=== PATIENT | female | born 1940 | race Caucasian/White ===

== ENCOUNTER 2016-04-23 10:12 | Emergency (ER) | payer BC, MEDICARE, OTHER ==
[~2016-04-23] VITALS: Ht 162.6 cm; Wt 85.0 kg
[~2016-04-23 10:12] MED LIST: ALPR.25 PO; AMLO5 PO; ASPI81CH CHEW; BENI40TA3 PO; CARA1TAB6 PO; CARV6.25 PO; FURO1TAB62 PO; JANU50TA8 PO; OMEP40CA2 PO; POTA10TA2 PO; [UNRECOGNIZED DRUG - REMARK] PO/GT
[2016-04-23 10:21] VITALS: BP 150/72; PULSE 72; RESP 16; TEMP 98; O2SAT 98
[2016-04-23 11:05] VITALS: BP 150/72; PULSE 72; RESP 16; TEMP 98; O2SAT 97
--- NOTE | 2016-04-23 12:11 | PD ---
HPI Chief Complaint: ENT Complaint Time Seen by Provider: 12:08 Travel History International Travel<30 days: No Contact w/Intl Traveler<30days: No Traveled to known affect area: No History of Present Illness HPI 75-year-old female presents to the emergency Department with complaint of the tip of a Q-tip stuck in her right ear. She uses ear drops for itchy ears and she was itching her ear with a Q-tip last night in the tip of that came off. She denies fever, chills, nausea, vomiting. Denies dizziness, headache, lightheadedness. Denies ear pain. Has tried to get it out with a bulb suction without success. No known allergies. Has an appointment on Sunday with ENT. No other modifying factors or associated signs and symptoms. PFSH Past Medical History Anxiety: Yes Cancer: No Cardiovascular Problems: Yes High Cholesterol: Yes Congestive Heart Failure: Yes (DYSTOLIC) Diabetes: Yes (type 2) Patient Takes Glucophage: Yes Endocrine: Yes GERD: Yes Genitourinary: Yes Hypertension: Yes Immune Disorder: No Musculoskeletal: No Neurologic: No Psychiatric: Yes Reproductive: No Respiratory: No Thyroid Disease: No Influenza Vaccination: Yes ?: Not Menopausal: Yes Past Surgical History Abdominal Surgery: Yes (APPY) Appendectomy: Yes Gynecologic Surgery: Yes (COMPLETE HYSTERECTOMY) Hysterectomy: Yes Other Surgery: Yes (SINUS SX) Social History Alcohol Use: No Tobacco Use: No Substance Use: No Allergies-Medications (Allergen,Severity, Reaction): Coded Allergies: No Known Allergies (Unverified , 04/23/16) Reported Meds & Prescriptions Reported Meds & Active Scripts Active Carafate (Sucralfate) 1 Gm Tab 1 Gm PO QID On empty stomach Reported Potassium Chloride ER (Potassium Chloride) 10 Meq Tab 10 Meq PO DAILY Omeprazole 40 Mg Cap 40 Mg PO DAILY Benicar (Olmesartan) 40 Mg Tab 40 Mg PO HS Janumet (Sitagliptin-Metformin) 50-1,000 Mg Tab 1 Tab PO BID Lasix (Furosemide) 20 Mg Tab 20 Mg PO DAILY Coreg (Carvedilol) 6.25 Mg Tab 6.25 Mg PO BID Aspirin 81 Mg Chew 81 Mg CHEW DAILY Norvasc (Amlodipine Besylate) 5 Mg Tab 5 Mg PO BID Xanax (Alprazolam) 0.25 Mg Tab 0.25 Mg PO BID PRN Review of Systems Except as stated in HPI: all other systems reviewed are Neg Physical Exam Narrative GENERAL: Well-nourished, well-developed female patient, in no acute distress SKIN: Warm and dry. HEAD: Atraumatic. Normocephalic. EYES: Pupils equal and round. No scleral icterus. No injection or drainage. EARS: Unable to visualize right tympanic membrane secondary to foreign body in the ear canal. After removal of foreign body the tympanic membrane is without erythema, dullness, loss of landmarks, perforation. ENT: Mucosa pink and moist. Airway patent. NECK: Trachea midline. CARDIOVASCULAR: Regular rate. RESPIRATORY: No accessory muscle use. GASTROINTESTINAL: Rounded. MUSCULOSKELETAL: No obvious deformities. No clubbing. No cyanosis. No edema. NEUROLOGICAL: Awake and alert. Oriented 3. No obvious cranial nerve deficits. Motor grossly within normal limits. Normal speech. PSYCHIATRIC: Appropriate mood and affect; insight and judgment normal. Data Data Last Documented VS Vital Signs Date Time Temp Pulse Resp B/P Pulse Ox O2 Delivery O2 Flow Rate FiO2 04/23/16 11:05 98.0 72 16 150/72 97 04/23/16 10:21 Room Air MDM Medical Decision Making Medical Screen Exam Complete: Yes Emergency Medical Condition: Yes Medical Record Reviewed: Yes Differential Diagnosis Foreign body of the right ear, otitis media, otitis externa Narrative Course 75-year-old female with foreign body in her right ear canal. Foreign body successfully removed using alligator forceps. Patient tolerated well. Patient is medically cleared and stable for discharge. Discussed reasons to return to the emergency department. Instructed patient to follow up with primary care provider. Patient agrees with treatment plan. The patients vital signs are stable and the patient is stable for outpatient follow-up and treatment. Patient discharged home, stable and in no acute distress. Diagnosis Primary Impression: Foreign body of ear, right Qualified Code: T16.1XXA - Foreign body of ear, right, initial encounter Referrals: Primary Care Physician Patient Instructions: Ear Foreign Body (ED), General Instructions Additional Instructions: Ibuprofen or Tylenol as directed and as needed for pain Follow up with ENT as needed Follow-up with primary care provider Return to the emergency department immediately with worsening of symptoms Med/Other Pt SpecificInfo: No Meds Exist/No RX given Disposition: DISCHARGE HOME Condition: Stable Sheila Cha Apr 23, 2016 12:10
== END 2016-04-23 12:21 | disposition home or self-care (01) ==
LOC: PHEFT 10:12
DX: T16.1XXA Foreign body in right ear, initial encounter (principal); I50.9 Heart failure, unspecified; E11.9 Type 2 diabetes mellitus without complications; I10 Essential (primary) hypertension; W45.8XXA Other foreign body or object entering through skin, initial encounter; Y93.9 Activity, unspecified; Y92.9 Unspecified place or not applicable
CPT/HCPCS: 69200

== ENCOUNTER 2016-06-27 15:17 | Emergency (ER) | payer MEDICARE ==
[~2016-06-27] VITALS: Ht 162.6 cm; Wt 87.7 kg
[~2016-06-27 15:17] MED LIST changes: -[UNRECOGNIZED DRUG - REMARK] PO/GT
[2016-06-27 15:29] VITALS: BP 170/66; PULSE 70; RESP 20; TEMP 97.8; O2SAT 99
--- NOTE | 2016-06-27 15:43 | PD ---
HPI Chief Complaint: Foreign Body Time Seen by Provider: 15:41 Travel History International Travel<30 days: No Contact w/Intl Traveler<30days: No Traveled to known affect area: No History of Present Illness HPI 75-year-old female presents the emergency department with suspected foreign body in the right ear. Patient states she was using Q-tips on Sunday and lost for Q-tip in her right ear. Patient called her ENT is unable to see her until 19 of July. Patient is having increased irritation today. She denies any other significant symptoms. She has no known drug allergies. PFSH Past Medical History Anxiety: Yes Cancer: No Cardiovascular Problems: Yes (HTN) High Cholesterol: Yes Congestive Heart Failure: Yes (DYSTOLIC) Diabetes: Yes (NO MEDS) Endocrine: Yes GERD: Yes Genitourinary: Yes Hypertension: Yes Immune Disorder: No Musculoskeletal: No Neurologic: No Psychiatric: Yes Reproductive: No Respiratory: No Thyroid Disease: No ?: Not Menopausal: Yes Past Surgical History Abdominal Surgery: Yes (APPY) Appendectomy: Yes Gynecologic Surgery: Yes (COMPLETE HYSTERECTOMY) Hysterectomy: Yes Other Surgery: Yes (SINUS SX) Social History Alcohol Use: No Tobacco Use: No Substance Use: No Allergies-Medications (Allergen,Severity, Reaction): Coded Allergies: No Known Allergies (Unverified , 06/27/16) Reported Meds & Prescriptions Reported Meds & Active Scripts Active Reported Omeprazole 20 Mg Tab 20 Mg PO DAILY Benicar (Olmesartan) 40 Mg Tab 40 Mg PO HS Coreg (Carvedilol) 6.25 Mg Tab 6.25 Mg PO BID Aspirin 81 Mg Chew 81 Mg CHEW DAILY Norvasc (Amlodipine Besylate) 5 Mg Tab 5 Mg PO BID Xanax (Alprazolam) 0.25 Mg Tab 0.25 Mg PO BID PRN Review of Systems Except as stated in HPI: all other systems reviewed are Neg General / Constitutional: No: Fever Eyes: No: Visual changes HENT: Positive: Earache (see history present illness), No: Headaches Cardiovascular: No: Chest Pain or Discomfort Respiratory: No: Shortness of Breath Gastrointestinal: No: Abdominal Pain Genitourinary: No: Dysuria Musculoskeletal: No: Pain Skin: No Rash Neurologic: No: Weakness Psychiatric: No: Depression Endocrine: No: Polydipsia Hematologic/Lymphatic: No: Easy Bruising Physical Exam Narrative GENERAL: Patient appears in no acute distress. SKIN: Warm and dry. Normal color. Normal turgor. HEAD: Atraumatic. Normocephalic. EYES: Pupils equal and round. No scleral icterus. No injection or drainage. ENT: No nasal bleeding or discharge. Mucous membranes pink and moist. Left TM and ear canal are normal. Right ear canal shows mild swelling and obvious Q- tip deep in the ear canal. After foreign body removed Right ear canal slightly irritated and swollen with mild erythema TM as well. Pharynx is normal. Airway is patent. NECK: Trachea midline. Supple and nontender. CARDIOVASCULAR: Regular rate and rhythm. RESPIRATORY: No accessory muscle use. Clear to auscultation. Breath sounds equal bilaterally. MUSCULOSKELETAL: Extremities without clubbing, cyanosis, or edema. No obvious deformities. NEUROLOGICAL: Awake and alert. No obvious cranial nerve deficits. Motor grossly within normal limits. Five out of 5 muscle strength in the arms and legs. Normal speech. PSYCHIATRIC: Appropriate mood and affect; insight and judgment normal. Data Data Last Documented VS Vital Signs Date Time Temp Pulse Resp B/P Pulse Ox O2 Delivery O2 Flow Rate FiO2 06/27/16 15:29 97.8 70 20 170/66 99 MDM Medical Decision Making Medical Screen Exam Complete: Yes Emergency Medical Condition: Yes Differential Diagnosis Foreign body right ear canal. External otitis. Otitis media. Tympanic membranes perforation. Narrative Course Patient is medically stable at time of exam. Foreign body is removed without difficulty using an alligator forceps. Patient will be placed on Cortisporin drops for the next 5 days. Patient follow-up if symptoms worsen as discussed. Diagnosis Primary Impression: Foreign body of ear, right Qualified Code: T16.1XXA - Foreign body of ear, right, initial encounter Additional Impression: Otitis externa Qualified Code: H60.311 - Acute diffuse otitis externa of right ear Referrals: Ear / Nose / Throat Specialist as needed Patient Instructions: General Instructions Additional Instructions: Foreign body is removed without difficulty using an alligator forceps. Patient will be placed on Cortisporin drops for the next 5 days. Patient follow-up if symptoms worsen as discussed. Med/Other Pt SpecificInfo: Prescription(s) given Disposition: DISCHARGE HOME Condition: Stable Raheem Munguia Jun 27, 2016 15:43
[2016-06-27] MEDS ORDERED: OMEP20TA PO (15:45)
[2016-06-27] MEDS ORDERED: CORT1SOL RIGHT EAR (16:02)
== END 2016-06-27 16:16 | disposition home or self-care (01) ==
LOC: PHEFT 15:17
DX: T16.1XXA Foreign body in right ear, initial encounter (principal); H60.311 Diffuse otitis externa, right ear; I10 Essential (primary) hypertension
CPT/HCPCS: 69200

== ENCOUNTER 2016-11-01 16:43 | Emergency (ER) | payer MEDICARE ==
[~2016-11-01] VITALS: Ht 162.6 cm; Wt 90.2 kg
[~2016-11-01 16:43] MED LIST changes: -CARA1TAB6 PO; +CORT1SOL RIGHT EAR; -FURO1TAB62 PO; -JANU50TA8 PO; +OMEP20TA PO; -OMEP40CA2 PO; -POTA10TA2 PO
[2016-11-01 16:53] VITALS: BP 186/78; PULSE 78; RESP 16; TEMP 98; O2SAT 100
[2016-11-01 19:00] VITALS: BP 193/69; PULSE 68; RESP 18; O2SAT 97
--- NOTE | 2016-11-01 19:14 | PD ---
HPI Chief Complaint: Respiratory Symptoms Time Seen by Provider: 18:48 Travel History International Travel<30 days: No Contact w/Intl Traveler<30days: No Traveled to known affect area: No History of Present Illness HPI This 75-year-old female complaining of shortness of breath. She has not been feeling well for some time. She was admitted to the hospital in December of 2015 with trouble breathing. At that time she was told that she had congestive heart failure though she was later told that it was due to hypertension and that her heart was okay. She has a history of hypertension and is on blood pressure medications twice a day. She has been feeling very fatigued and weak for several months. She Dr. Bennett has been sending her to multiple physicians for evaluation. She has had some declining kidney function. She has been sent to an pizza baker. She is going to see Dr. Vences. She has never smoked. She is supposed to have a bone marrow biopsy on Sunday to assess for multiple myeloma. 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 He had a CT scan of her abdomen which showed some tiny nodules in the lung. He has a history of diabetes. PFSH Past Medical History Hx Anticoagulant Therapy: No Anxiety: Yes Cancer: No Cardiovascular Problems: Yes (HTN, CHOL) High Cholesterol: Yes Congestive Heart Failure: Yes (DYSTOLIC) Diabetes: Yes Patient Takes Glucophage: No Endocrine: Yes GERD: Yes Genitourinary: Yes Hypertension: Yes Immune Disorder: No Musculoskeletal: No Neurologic: No Psychiatric: Yes Reproductive: No Respiratory: No Thyroid Disease: No Tetanus Vaccination: Unknown Influenza Vaccination: Yes ?: Not Menopausal: Yes Past Surgical History Abdominal Surgery: Yes (APPY) Appendectomy: Yes Gynecologic Surgery: Yes (COMPLETE HYSTERECTOMY) Hysterectomy: Yes Other Surgery: Yes (SINUS SX) Social History Alcohol Use: No Tobacco Use: No Substance Use: No Allergies-Medications (Allergen,Severity, Reaction): Coded Allergies: Sulfa (Verified Allergy, Unknown, "Doesn't remember", 11/01/16) Insulins (Verified Adverse Reaction, Severe, "[place] like I had the flu", 04/08) Janumet (Verified Adverse Reaction, Severe, "Affected my kidneys", 11/01/16 ) Reported Meds & Prescriptions Reported Meds & Active Scripts Active Reported Vitamin D-3 (Cholecalciferol) 2,000 Unit Tab Vitamin B-12 (Cyanocobalamin (Vitamin B-12)) 1,000 Mcg/1 Ml Drops Mg PO DAILY Fish Oil 1,200 mg Softgel ([facility]-3S/Dha/Epa/Fish Oil) 1 Each Capsule 1,200 Mg PO DAILY Tradjenta (Linagliptin) 5 Mg Tab 5 Mg PO DAILY Tresiba Flextouch Pen Inj (Insulin Degludec Inj) 300 unit/3 ML Pen 30 Units SQ TID Ondansetron (Ondansetron HCl) 8 Mg Tab 8 Mg PO TID Atorvastatin (Atorvastatin Calcium) 40 Mg Tab 40 Mg PO HS Losartan (Losartan Potassium) 100 Mg Tab 100 Mg PO DAILY Omeprazole 20 Mg Tab 20 Mg PO DAILY Coreg (Carvedilol) 6.25 Mg Tab 6.25 Mg PO BID Aspirin 81 Mg Chew 81 Mg CHEW DAILY Norvasc (Amlodipine Besylate) 5 Mg Tab 5 Mg PO BID Xanax (Alprazolam) 0.25 Mg Tab 0.25 Mg PO BID PRN Review of Systems General / Constitutional: No: Fever, Chills HENT: No: Headaches Cardiovascular: Positive: Edema, No: Chest Pain or Discomfort, Palpitations Respiratory: Positive: Shortness of Breath, No: Wheezing Gastrointestinal: No: Nausea Genitourinary: No: Urgency, Frequency Musculoskeletal: No: Myalgias, Arthralgias Skin: No Rash, No Itching Neurologic: Positive: Weakness, No: Focal Abnormalities Endocrine: No: Heat Intolerance Hematologic/Lymphatic: No: Easy Bruising Physical Exam Narrative GENERAL: Well-developed female SKIN: Focused skin assessment warm/dry. HEAD: Atraumatic. Normocephalic. EYES: Pupils equal and round. No scleral icterus. No injection or drainage. ENT: No nasal bleeding or discharge. Mucous membranes pink and moist. NECK: Trachea midline. No JVD. CARDIOVASCULAR: Regular rate and rhythm. No murmur appreciated. RESPIRATORY: No accessory muscle use. Clear to auscultation. Breath sounds equal bilaterally. GASTROINTESTINAL: Abdomen soft, non-tender, nondistended. Hepatic and splenic margins not palpable. MUSCULOSKELETAL: No obvious deformities. No clubbing. No cyanosis. Trace edema. NEUROLOGICAL: Awake and alert. No obvious cranial nerve deficits. Motor grossly within normal limits. Normal speech. PSYCHIATRIC: Appropriate mood and affect; insight and judgment normal. Data Data Last Documented VS Vital Signs Date Time Temp Pulse Resp B/P Pulse Ox O2 Delivery O2 Flow Rate FiO2 11/01/16 19:15 20 99 11/01/16 19:00 68 193/69 Room Air 11/01/16 16:53 98.0 Orders Electrocardiogram (11/01/16 19:09) Complete Blood Count With Diff (11/01/16 19:09) Comprehensive Metabolic Panel (11/01/16 19:09) Troponin I (11/01/16 19:09) B-Type Natriuretic Peptide (11/01/16 19:09) Prothrombin Time / Inr (Pt) (11/01/16 19:09) Act Partial Throm Time (Ptt) (11/01/16 19:09) Urinalysis - C+S If Indicated (11/01/16 19:09) D-Dimer (11/01/16 19:09) Magnesium (Mg) (11/01/16 19:09) Chest, Pa & Lat (11/01/16 19:09) Arterial Blood Gas (Abg) (11/01/16 19:48) Carvedilol (Coreg) (11/01/16 20:00) Amlodipine (Norvasc) (11/01/16 20:00) Losartan (Cozaar) (11/01/16 20:00) Ct Pulmonary Angiogram (11/01/16 20:32) Iodixanol 320 Inj (Rad Ct) (Visipaque 32 (11/01/16 21:55) Labs Laboratory Tests Test 11/01/16 11/01/16 19:20 20:09 White Blood Count 10.2 TH/MM3 Red Blood Count 4.53 MIL/MM3 Hemoglobin 12.4 GM/DL Hematocrit 36.8 % Mean Corpuscular Volume 81.3 FL Mean Corpuscular Hemoglobin 27.4 PG Mean Corpuscular Hemoglobin 33.8 % Concent Red Cell Distribution Width 14.0 % Platelet Count 146 TH/MM3 Mean Platelet Volume 9.2 FL Neutrophils (%) (Auto) 66.8 % Lymphocytes (%) (Auto) 20.5 % Monocytes (%) (Auto) 10.6 % Eosinophils (%) (Auto) 1.6 % Basophils (%) (Auto) 0.5 % Neutrophils # (Auto) 6.7 TH/MM3 Lymphocytes # (Auto) 2.1 TH/MM3 Monocytes # (Auto) 1.1 TH/MM3 Eosinophils # (Auto) 0.2 TH/MM3 Basophils # (Auto) 0.1 TH/MM3 CBC Comment DIFF FINAL Differential Comment Prothrombin Time 10.1 SEC Prothromb Time International 0.9 RATIO Ratio Activated Partial 25.6 SEC Thromboplast Time D-Dimer Quantitative (PE/DVT) 0.62 MG/L FEU Sodium Level 146 MEQ/L Potassium Level 4.0 MEQ/L Chloride Level 110 MEQ/L Carbon Dioxide Level 29.5 MEQ/L Anion Gap 7 MEQ/L Blood Urea Nitrogen 22 MG/DL Creatinine 1.40 MG/DL Estimat Glomerular Filtration 37 ML/MIN Rate Random Glucose 96 MG/DL Calcium Level 10.2 MG/DL Magnesium Level 2.1 MG/DL Total Bilirubin 0.4 MG/DL Aspartate Amino Transf 19 U/L (AST/SGOT) Alanine Aminotransferase 31 U/L (ALT/SGPT) Alkaline Phosphatase 84 U/L Troponin I LESS THAN 0.02 NG/ML B-Type Natriuretic Peptide 119 PG/ML Total Protein 7.8 GM/DL Albumin 3.7 GM/DL Blood Gas Puncture Site LT RADIAL Blood Gas Patient Temperature 37.0 Blood Gas HCO3 26 mmol/L Blood Gas Base Excess 2.0 mmol/L Blood Gas Oxygen Saturation 94 % Arterial Blood pH 7.42 Arterial Blood Partial 41 mmHg Pressure CO2 Arterial Blood Partial 87 mmHg Pressure O2 Arterial Blood Oxygen Content 16.3 Vol % Arterial Blood 1.2 % Carboxyhemoglobin Arterial Blood Methemoglobin 1.4 % Blood Gas Hemoglobin 12.2 G/DL Blood Gas Inspired Oxygen 21 % [facility] Medical Decision Making Medical Screen Exam Complete: Yes Emergency Medical Condition: Yes Medical Record Reviewed: Yes Differential Diagnosis Differential includes CHF, pneumonia, COPD, PE Narrative Course Chest x-rays read as negative. D-dimer is elevated at 0.6260 a CTA of the chest has been ordered. CT scan has been read as negative. A blood gas on room air was obtained and her crit 87. She does not have metabolic acidosis patient appears stable for discharge. I cannot relate why she has her ongoing dyspnea. Diagnosis Primary Impression: Dyspnea Additional Instructions: Follow-up with Dr. Paulino, return as needed Disposition: 01 DISCHARGE HOME Condition: Stable Micah Barnard MD Nov 01, 2016 19:14
[2016-11-01 19:28] LABS: AUTOMATED NEUTROPHIL # 6.7 TH/MM3 (1.8-7.7); BASOPHIL # 0.1 TH/MM3 (0-0.2); BASOPHIL % 0.5 % (0.0-2.0); EOSINOPHIL # 0.2 TH/MM3 (0-0.4); EOSINOPHIL % 1.6 % (0.0-4.0); HEMATOCRIT 36.8 % (35.0-46.0); HEMO FLAGS DIFF FINAL; LYMPH % 20.5 % (9.0-44.0); LYMPHOCYTE # 2.1 TH/MM3 (1.0-4.8); MEAN CELL VOLUME 81.3 FL (80.0-100.0); MEAN CORPUSCULAR HEMOGLOBIN 27.4 PG (27.0-34.0); MEAN CORPUSCULAR HGB CONC 33.8 % (32.0-36.0); MONO % 10.6 % (0.0-8.0); NEUT % 66.8 % (16.0-70.0); PLATELET COUNT 146 TH/MM3 (150-450); RED BLOOD COUNT 4.53 MIL/MM3 (4.00-5.30); WHITE BLOOD COUNT 10.2 TH/MM3 (4.0-11.0)
[2016-11-01 19:40] LABS: CHLORIDE 110 MEQ/L (98-107); SODIUM (NA) 146 MEQ/L (136-145)
[2016-11-01 19:44] LABS: ANION GAP 7 MEQ/L (5-15); BICARBONATE 29.5 MEQ/L (21.0-32.0); BLOOD UREA NITROGEN 22 MG/DL (7-18); MAGNESIUM 2.1 MG/DL (1.5-2.5)
[2016-11-01 19:47] LABS: ALT (GPT) 31 U/L (10-53); AST (GOT) 19 U/L (15-37); GLOMERULAR FILTRATION RATE 37 ML/MIN (>89)
[2016-11-01 19:48] LABS: APTT (PATIENT) 25.6 SEC (24.3-30.1); INTERNATIONAL NORMALIZED RATIO 0.9 RATIO; PROTHROMBIN TIME - PATIENT 10.1 SEC (9.8-11.6)
[2016-11-01 19:49] LABS: TOTAL BILIRUBIN ADULT 0.4 MG/DL (0.2-1.0)
[2016-11-01 19:50] LABS: ALKALINE PHOSPHATASE 84 U/L (45-117)
[2016-11-01 20:00] VITALS: BP 200/78; PULSE 65; RESP 20; O2SAT 98
[2016-11-01] MEDS ORDERED: LOSARTAN 50 MG TAB PO ONE (20:00)
[2016-11-01] MEDS ORDERED: amLODIPine BESYLATE 5 MG TAB PO ONE (20:00)
[2016-11-01] MEDS ORDERED: CARVEDILOL 6.25 MG TAB PO ONE (20:00)
--- NOTE | 2016-11-01 20:05 | RADRPT ---
EXAM DATE/TIME: 11/01/2016 19:53 [facility] COMPARISON: CHEST PA & LAT, January 19, 2016, 10:25. INDICATIONS : Short of breath today. MEDICAL HISTORY : Hypertension. Diabetes mellitus type 2. Cardiovascular disease SURGICAL HISTORY : Appendectomy. Hysterectomy. ENCOUNTER: Initial ACUITY: 1 day PAIN SCORE: 0/10 LOCATION: Bilateral chest FINDINGS: PA and lateral views of the chest demonstrate the lungs to be symmetrically aerated without evidence of mass, infiltrate or effusion. The cardiomediastinal contours are unremarkable. Osseous structure s are intact. CONCLUSION: No acute disease. Bishop Myles MD FACR on November 01, 2016 at 20:04 Board Certified Radiologist. This report was verified electronically.
[2016-11-01 20:24] LABS: BLOOD GAS CARBOXYHEMOGLOBIN 1.2 % (0-4); BLOOD GAS HCO3 26 mmol/L (22-26); BLOOD GAS METHEMOGLOBIN 1.4 % (0-2); BLOOD GAS O2 HGB SATURATION 94 % (90-100); BLOOD GAS OXYGEN CONTENT 16.3 Vol % (12.0-20.0); BLOOD GAS PCO2 41 mmHg (38-42); BLOOD GAS PO2 87 mmHg (61-120); BLOOD GAS TOTAL HGB 12.2 G/DL (12.0-16.0)
[2016-11-01 20:25] LABS: CRITICAL VALUE NO; DRAW SITE LT RADIAL; FIO2 21 %; NUMBER OF ARTERIAL PUNCTURES 2; STAT NO; ULNAR PULSE PRESENT
[2016-11-01 21:00] VITALS: BP 160/88; PULSE 69; RESP 20; O2SAT 99
[2016-11-01] MEDS ORDERED: [UNRECOGNIZED DRUG - CODE] PO (21:35)
[2016-11-01] MEDS ORDERED: OMEG12007 PO (21:35)
[2016-11-01] MEDS ORDERED: ATOR40TA16 PO (21:35)
[2016-11-01] MEDS ORDERED: INSU1INJ14 SQ (21:35)
[2016-11-01] MEDS ORDERED: CHOL1TAB42 (21:35)
[2016-11-01] MEDS ORDERED: LOSA100T PO (21:35)
[2016-11-01] MEDS ORDERED: ONDA1TAB17 PO (21:35)
[2016-11-01] MEDS ORDERED: TRAD5TAB PO (21:35)
[2016-11-01] MEDS ORDERED: IODIXANOL 320 MG/ML 10 ML VIAL (for Rad CT) IV ONE (21:55)
--- NOTE | 2016-11-01 22:01 | RADRPT ---
EXAM DATE/TIME: 11/01/2016 21:38 [facility] COMPARISON: CT PULMONARY ANGIOGRAM, January 18, 2016, 17:58. INDICATIONS : Shortness of breath. IV CONTRAST: 50 cc Visipaque (iodixanol) IV RADIATION DOSE: 16.80 CTDIvol (mGy) MEDICAL HISTORY : Hypertension. Congestive heart failure. Diabetes mellitus type 2. SURGICAL HISTORY : None. ENCOUNTER: Initial ACUITY: 1 day PAIN SCALE: 0/10 LOCATION: chest TECHNIQUE: Volumetric scanning of the chest was performed using a pulmonary embolism protocol MIP images were re constructed. Using automated exposure control and adjustment of the mA and/or kV according to patien t size, radiation dose was kept as low as reasonably achievable to obtain optimal diagnostic quality images. DICOM format image data is available electronically for review and comparison. Follow-up recommendations for incidentally detected pulmonary nodules are based at a minimum on nodul e size and patient risk factors according to Fleischner Society Guidelines. FINDINGS: PULMONARY ARTERIES: No filling defects are seen in the pulmonary arteries through the segmental level. LUNGS: There is no consolidation or pneumothorax . No concerning pulmonary nodule is visualized. PLEURAE: There is no pleural thickening or pleural effusion. MEDIASTINUM: There is good visualization of the great vessels of the middle mediastinum. No evidence of mediastin al or hilar adenopathy/mass. MUSCULOSKELETAL: Within normal limits for patient age. MISCELLANEOUS: The visualized upper abdominal organs demonstrate no acute abnormality. CONCLUSION: Negative for central pulmonary emboli. Bishop Myles MD FACR on November 01, 2016 at 21:58 Board Certified Radiologist. This report was verified electronically.
--- NOTE | 2016-11-01 22:24 | EKG ---
Date Performed: 11/01/2016 Time Performed: 19:27:03 PTAGE: 75 years EKG: SINUS BRADYCARDIA BORDERLINE LEFT AXIS DEVIATION NONSPECIFIC T-WAVE ABNORMALITY BORDERLINE ECG PREVIOUS TRACING : 03/03/2016 13.20 No significant change from previous tracing noted. DOCTOR: Timbo Miranda Interpretating Date/Time 11/01/2016 22:23:11
[2016-11-01 22:42] VITALS: BP 152/73
== END 2016-11-01 22:50 | disposition home or self-care (01) ==
LOC: PHED 16:43
DX: R06.02 Shortness of breath (principal); E11.9 Type 2 diabetes mellitus without complications; I11.0 Hypertensive heart disease with heart failure; Z79.4 Long term (current) use of insulin; Z79.899 Other long term (current) drug therapy
CPT/HCPCS: 36600; 71020; 71275; 80053; 82805; 83735; 83880; 84484; 85025; 85379; 85610; 85730; 93005; 99285; Q9967

== ENCOUNTER 2016-11-03 07:46 | Day surgery (SDC) | payer MEDICARE ==
[~2016-11-03] VITALS: Ht 162.6 cm; Wt 88.5 kg
[~2016-11-03 07:46] MED LIST changes: +ATOR40TA16 PO; -BENI40TA3 PO; +CHOL1TAB42; -CORT1SOL RIGHT EAR; +INSU1INJ14 SQ; +LOSA100T PO; +OMEG12007 PO; +ONDA1TAB17 PO; +TRAD5TAB PO; +[UNRECOGNIZED DRUG - CODE] PO
[2016-11-03] MEDS ORDERED: SODIUM CHLOR 0.9% 1000 ML IV SCH (08:00)
[2016-11-03 08:06] VITALS: BP 175/72; PULSE 64; RESP 20; TEMP 98.7; O2SAT 96
[2016-11-03] MEDS ORDERED: SODIUM CHLORIDE 0.9% FLUSH 10 ML FLUSH IV FLUSH PRN (08:15)
[2016-11-03 08:18] LABS: AUTOMATED NEUTROPHIL # 5.4 TH/MM3 (1.8-7.7); BASOPHIL % 0.5 % (0.0-2.0); EOSINOPHIL # 0.1 TH/MM3 (0-0.4); EOSINOPHIL % 1.6 % (0.0-4.0); HEMATOCRIT 38.3 % (35.0-46.0); HEMO FLAGS DIFF FINAL; LYMPH % 19.3 % (9.0-44.0); LYMPHOCYTE # 1.5 TH/MM3 (1.0-4.8); MEAN CELL VOLUME 81.8 FL (80.0-100.0); MEAN CORPUSCULAR HEMOGLOBIN 26.1 PG (27.0-34.0); MEAN CORPUSCULAR HGB CONC 31.9 % (32.0-36.0); NEUT % 67.6 % (16.0-70.0); PLATELET COUNT 134 TH/MM3 (150-450); RED BLOOD COUNT 4.68 MIL/MM3 (4.00-5.30); RED CELL DISTRIBUTION WIDTH 15.1 % (11.6-17.2); WHITE BLOOD COUNT 7.9 TH/MM3 (4.0-11.0)
[2016-11-03] MEDS ORDERED: LIDOCAINE 1%/EPINEPHrine 1:100,000 SOLN 20 ML VIAL ONE (08:41)
[2016-11-03] MEDS ORDERED: MIDAZOLAM HCL 5 MG/5 ML VIAL ONE (09:00)
[2016-11-03] MEDS ORDERED: fentaNYL CITRATE 250 MCG/5 ML AMP ONE (09:00)
[2016-11-03] MEDS ORDERED: SODIUM CHLORIDE 0.9% FLUSH 10 ML FLUSH IV FLUSH SCH (09:00)
--- NOTE | 2016-11-03 09:53 | PD.RAD ---
Post Procedure Progress Note Pre Procedure Diagnosis: (1) Monoclonal gammopathy Post Procedure Diagnosis: (1) Monoclonal gammopathy Procedure Date: Nov 03, 2016 Supervising Radiologist: Constantine Myles Estimated blood loss: 3cc Anesthesia: Local, Conscious Sedation Plan of Activity Patient to Unit: ROPU Patient Condition: Good Additional Comments: CT guided bone marrow biopsy completed. Samples sent to pathology. Full dictated report to follow. See PACS Report for procedural detail/treatment Constantine Myles MD Nov 03, 2016 09:53
[2016-11-03 10:05] VITALS: BP 175/80; PULSE 66; RESP 18; TEMP 98.5; O2SAT 93
[2016-11-03 10:11] LABS: BONE MARROW PROCESSING COMPLETE; IRON STAIN DONE; JENNER GIEMSA STAIN DONE
[2016-11-03 10:20] VITALS: BP 152/75; PULSE 60; RESP 18; O2SAT 94
[2016-11-03 10:50] VITALS: BP 150/72; PULSE 54; RESP 18; O2SAT 95
[2016-11-03 11:20] VITALS: BP 144/73; PULSE 56; RESP 18; O2SAT 97
[2016-11-03 12:00] VITALS: BP 147/74; PULSE 55; RESP 18; O2SAT 97
== END 2016-11-03 12:20 | disposition home or self-care (01) ==
LOC: HRAD 07:46 → HRIP 07:49 → HRAD 12:20
PROVIDERS: ATTEND Internal Medicine
DX: D47.2 Monoclonal gammopathy (principal)
CPT/HCPCS: 38221; 77012; 85025; 85097; 88305; 88311; 88313; 99152; 99153; C1830; G0364; J2250; J3010; J7030